=== PATIENT | male | born 1960 | race Hispanic/Latino ===

== ENCOUNTER 2018-09-20 12:59 | Inpatient (IN) | payer OTHER ==
[2018-09-20] MEDS ORDERED: NA CHLORIDE 0.9% 1,000 ML ONE (13:30)
[2018-09-20] MEDS ORDERED: FENTANYL CITR 100 MCG/2 ML ONE (13:42)
[2018-09-20] MEDS ORDERED: ONDANSETRON 4 MG/2 ML VIAL ONE ×2 (13:48→16:01)
[2018-09-20 13:56] LABS: Absolute Lymphocytes (CBC) 0.7 K/uL (0.7-4.9); Basophils % 0.5 % (0-1.3); Hematocrit 47.9 % (39.6-49.0); Lymphocytes % 5.9 % (15.3-44.8); MPV 9.7 fL (7.6-11.3); RBC Red Blood Cell Count 5.36 M/uL (4.33-5.43)
[2018-09-20 14:04] LABS: Protime INR 0.91
[2018-09-20 14:14] LABS: ALT/SGPT 38 U/L (12-78); AST/SGOT 15 U/L (15-37); Albumin 4.6 g/dL (3.4-5.0); Alkaline Phosphatase 63 U/L (45-117); BUN Blood Urea Nitrogen 22 mg/dL (7-18); Bicarbonate 28 mmol/L (21-32); Bilirubin Direct 0.2 mg/dL (0-0.2); Bilirubin Total 0.6 mg/dL (0.2-1.0); Glucose Level 397 mg/dL (74-106); Magnesium 1.9 mg/dL (1.8-2.4); NT PRO-BNP 53 pg/mL (<125); Potassium 4.7 mmol/L (3.5-5.1); Protein, Total 8.9 g/dL (6.4-8.2); Sodium Level 135 mmol/L (136-145); Troponin (Emerg Dept Use Only) < 0.02 ng/mL (0.0-0.045)
--- NOTE | 2018-09-20 15:24 | RAD REPORT ---
EXAM DESCRIPTION: CT - Stone Protocol - 09/20/2018 3:10 pm CLINICAL HISTORY: Abdominal pain, flank pain COMPARISON: None. TECHNIQUE: Axial 5 mm thick images were obtained without oral or IV contrast. The [id number]-co-odtq span s the entirety of the system including uppermost abdomen and lung bases. All CT scans are performed using dose optimization technique as appropriate and may include automated exposure control or mA/KV adjustment according to patient size. FINDINGS: Zzvi-ap-finstymy right-sided hydronephrosis is present down to the UVJ level where there i s a 5 millimeter stone. No left-sided hydronephrosis. Patient has multiple 2-10 mm nonobstructing casi yx calculi. There is significant stranding and fluid in the perinephric fat indicating significant ob struction and possible ruptured calyx. No suspicious renal masses. Isodense masses and pyelonephritis are not excluded on a stone protocol CT scan. No urinary bladder suspicious finding. No significant adrenal finding. Diffuse fatty infiltration is present in the liver. Granulomatous type calcifications are present. Sp anibal and pancreas show no acute findings. No gallbladder or biliary tree abnormality identified. Small hiatal hernia is present. Moderate stool volume seen in the colon. No acute GI process seen. No hernia, mass or bulky lymphadenopathy noted. No free air, free fluid or inflammatory stranding. No significant bony abnormality. IMPRESSION: Mild to moderate right-sided hydronephrosis secondary to obstructing 5 mm stone at the r ight UVJ. Significant stranding is present in the perinephric fat on the right and there is some fluid present. This could indicate a leaking or ruptured calyx from obstruction. Numerous 2-10 mm nonobstructing calyx calculi of each kidney. Isodense masses and pyelonephritis are not excluded on stone protocol technique. Diffuse fatty infiltration of the liver.
--- NOTE | 2018-09-20 15:35 | RAD REPORT ---
EXAM DESCRIPTION: RAD - Chest Single View - 09/20/2018 1:39 pm CLINICAL HISTORY: Abdominal pain, right flank pain COMPARISON: None. TECHNIQUE: AP portable chest image was obtained 1332 hours . FINDINGS: No focal mass or consolidation. Interstitial markings are mildly prominent suspected to be baseline. Heart and vasculature are normal. No measurable pleural effusion and no pneumothorax. No a cute bony abnormality seen. No acute aortic findings suspected. IMPRESSION: No acute cardiopulmonary process.
[2018-09-20] MEDS ORDERED: MAGNESIUM OXIDE 400 MG TAB ONE (15:50)
[2018-09-20] MEDS ORDERED: CEFTRIAXONE/SWI 1gm 1 GM/10 ML SYR ONE (15:50)
[2018-09-20] MEDS ORDERED: TAMSULOSIN 0.4 MG SR CAP ONE (15:50)
[2018-09-20 16:23] LABS: Urine Bacteria <20 /HPF (NONE SEEN); Urine Culture Reflex Order NOT NEEDED
[2018-09-20] MEDS ORDERED: ACETAMINOPHEN 500 MG TAB ONE (16:39)
[2018-09-20] MEDS ORDERED: HYDROMORPHONE HCL 0.5 MG/0.5 ML INJ ONE (16:48)
[2018-09-20] MEDS ORDERED: PROMETHAZINE 25 MG/ML VIAL ONE (16:54)
--- NOTE | 2018-09-20 16:54 | ER ---
Nurse's Notes [facility] Name: Bharath Rhodes Jr Age: 57 yrs Sex: Male : 1960 Arrival Date: 09/20/2018 Time: 13:02 Bed 18 Private MD: Diagnosis: Essential (primary) hypertension;Hydronephrosis with renal and ureteral calculous obstruction;Ruptured Calyx Presentation: 09/20 13:03 Presenting complaint: Patient states: when i woke today, i started having abdominal hj pain, R flank pain and been vomiting ever since, now im dizzy; denies fever and chills;. Transition of care: patient was not received from another setting of care. Onset of symptoms was September 20, 2018. Risk Assessment: Do you want to hurt yourself or someone else? Patient reports no desire to harm self or others. Initial Sepsis Screen: Does the patient meet any 2 criteria? No. Patient's initial sepsis screen is negative. Does the patient have a suspected source of infection? No. Patient's initial sepsis screen is negative. Care prior to arrival: None. 13:03 Method Of Arrival: Ambulatory 13:03 Acuity: LAVON 3 hj Historical: - Allergies: 13:05 No Known Allergies; hj - PMHx: 13:05 Diabetes - NIDDM; Hypertension; hj - PSHx: 13:05 None; hj Screenin:20 Abuse screen: Denies threats or abuse. Nutritional screening: No deficits noted. em Tuberculosis screening: No symptoms or risk factors identified. Fall Risk None identified. Assessment: 13:20 General: Appears in no apparent distress. uncomfortable, Behavior is calm, cooperative, em Denies fever. Pain: Complains of pain in right mid back Pain radiates to anterior aspect of right lateral abdomen and posterior aspect of right lateral abdomen Pain currently is 8 out of 10 on a pain scale. Pain began this morning. Neuro: Level of Consciousness is awake, alert, obeys commands, Oriented to person, place, time, situation, Reports dizziness, weakness Denies headache. Cardiovascular: Denies chest pain, shortness of breath, Capillary refill < 3 seconds Patient's skin is warm and dry. Respiratory: Airway is patent Respiratory effort is even, unlabored, Respiratory pattern is regular, symmetrical. GI: Abdomen is flat, Bowel sounds present X 4 quads. Abd is soft and non tender X 4 quads. Reports nausea, vomiting. Derm: Skin is intact, is healthy with good turgor, Skin is pink, warm \T\ dry. Musculoskeletal: Capillary refill < 3 seconds, Range of motion: intact in all extremities. 14:07 Reassessment: Patient appears in no apparent distress at this time. Patient and/or em family updated on plan of care and expected duration. Pain level reassessed. Patient is alert, oriented x 3, equal unlabored respirations, skin warm/dry/pink. rates pain 6/10 Patient states feeling better. 15:00 Reassessment: reports pain is coming back, rates pain 7/10, provider notified, new em medication orders received. 15:02 Reassessment: wheeled to CT via stretcher. em 17:45 Reassessment: Patient appears in no apparent distress at this time. Patient and/or em family updated on plan of care and expected duration. Pain level reassessed. Patient is alert, oriented x 3, equal unlabored respirations, skin warm/dry/pink. appears comfortable, rates pain 7/10 Patient states feeling better. Vital Signs: 13:05 BP 203 / 101; Pulse 94; Resp 18; Temp 98.3(O); Pulse Ox 99% on R/A; Weight 86.18 kg; hj Height 5 ft. 9 in. (175.26 cm); Pain 6/10; 13:20 BP 200 / 107; Pulse 91; Resp 18; Pulse Ox 99% ; Pain 7/10; em 14:07 BP 175 / 103; Pulse 82; Resp 22; Pulse Ox 96% on R/A; Pain 6/10; em 14:30 BP 161 / 92; Pulse 81; Resp 20; Pulse Ox 99% on R/A; em 15:30 BP 196 / 94; Pulse 95; Resp 24; Pulse Ox 97% on R/A; Pain 7/10; em 16:34 BP 197 / 93; Pulse 88; Resp 18; Temp 99.5(O); Pulse Ox 99% on R/A; Pain 8/10; em 17:56 BP 175 / 100; Pulse 82; Resp 20; Temp 99.7(O); Pulse Ox 97% on R/A; Pain 7/10; em 13:05 Body Mass Index 28.06 (86.18 kg, 175.26 cm) ED Course: 13:02 Patient arrived in ED. hj 13:04 Triage completed. hj 13:05 Arm band placed on right wrist. hj 13:11 [facility]ain[facility] Pritchard [facility]-C [facility]. snw 13:11 John Ordonez MD is Attending Physician. snw 13:14 Jarred Ramirez LVN is Primary Nurse. em 13:20 Patient has correct armband on for positive identification. Placed in gown. Bed in low em position. Call light in reach. Side rails up X2. Adult w/ patient. school bus monitor on. Pulse ox on. NIBP on. 13:40 XRAY Chest (1 view) In Process Unspecified. EDMS 13:45 Radiology exam delayed due to lab results not completed at this time. (BUN/Creatinine). mw3 13:50 Initial lab(s) drawn, by me, sent to lab. Inserted saline lock: 20 gauge in right em antecubital area, using aseptic technique. Blood collected. 14:14 Radiology exam delayed due to lab results not completed at this time. (BUN/Creatinine). mw3 15:10 CT completed. Patient tolerated procedure well. Patient moved back from CT. bq 15:[address] In Process Unspecified. EDMS 16:51 Summer Shine MD is Hospitalizing Provider. snw 17:11 X-ray completed. Portable x-ray completed in exam room. Patient tolerated procedure mh1 well. 17:12 Abdomen 1 View (KUB) XRAY In Process Unspecified. EDMS 17:47 No provider procedures requiring assistance completed. Patient admitted, IV remains in em place. Administered Medications: 13:50 Drug: fentaNYL (PF) 50 mcg Route: IVP; Site: right antecubital; iw 14:22 Follow up: Response: No adverse reaction; Pain is decreased em 13:52 Drug: Zofran 4 mg Route: IVP; Site: right antecubital; iw 14:22 Follow up: Response: No adverse reaction; Nausea is decreased em 13:53 Drug: NS 0.9% 1000 ml Route: IV; Rate: 125 ml/hr; Site: right antecubital; em 18:07 Follow up: IV Status: Completed infusion em 14:48 Drug: NS 0.9% 500 ml Route: IV; Rate: bolus; Site: right antecubital; em 17:58 Follow up: IV Status: Completed infusion; IV Intake: 500ml em 15:01 Drug: fentaNYL (PF) 50 mcg Route: IVP; Site: right antecubital; em 16:45 Follow up: Response: No adverse reaction; Pain is decreased em 16:14 Drug: Flomax 0.4 mg Route: PO; em 16:46 Follow up: Response: No adverse reaction em 16:14 Drug: Magnesium 400 mg Route: PO; em 16:46 Follow up: Response: No adverse reaction em 16:14 Drug: NS 0.9% 500 ml Route: IV; Rate: bolus; Site: right antecubital; em 16:45 Follow up: IV Status: Completed infusion; IV Intake: 500ml em 16:15 Drug: Rocephin 1 grams Route: IV; Rate: calculated rate; Site: right antecubital; iw 17:03 Follow up: Response: No adverse reaction; IV Status: Completed infusion; IV Intake: 10mlem 16:45 Drug: Tylenol 1000 mg Route: PO; em 17:55 Follow up: Response: No adverse reaction em 17:03 Drug: Dilaudid 0.5 mg Route: IVP; Site: right antecubital; iw 17:55 Follow up: Response: No adverse reaction; Pain is decreased em 17:05 Drug: Phenergan 6.25 mg Route: IVP; Site: right antecubital; iw 17:55 Follow up: Response: No adverse reaction; Nausea is decreased em Point of Care Testing: Blood Glucose: 16:33 Blood Glucose: 346 mg/dL; em Ranges: Intake: 16:45 IV: 500ml; Total: 500ml. em 17:03 IV: 10ml; Total: 510ml. em 17:58 IV: 500ml; Total: 1010ml. em Outcome: 16:52 Decision to Hospitalize by Provider. snw 17:48 Admitted to Med/surg accompanied by tech, family with patient, via stretcher, room 207, em with chart, Report called to GABY Gil 17:48 Condition: stable 17:48 Instructed on the need for admit, Demonstrated understanding of instructions. 18:07 Patient left the ED. em Signatures: Dispatcher [facility] EDZainab Booker, VARIETY LATHE OPERATOR-C VARIETY LATHE OPERATOR-CsnAna Marcum1 Letty Mensah bq Jarred Ramirez, BIZTALK SOFTWARE DEVELOPER BIZTALK SOFTWARE DEVELOPER em Melva Aguilar RN RN iw Yuriy Salgado RN RN Lakesha Simon mw3 Corrections: (The following items were deleted from the chart) 13:07 13:05 Pulse 94bpm; Resp 18bpm; Pulse Ox 99% RA; Temp 98.3F Oral; 86.18 kg; Height 5 ft. hj 9 in.; BMI: 28.0; Pain 6/10; hj 16:45 16:34 BP 197 / 93; Pulse 88bpm; Resp 18bpm; Pulse Ox 99% RA; Pain 6/10; em em
--- NOTE | 2018-09-20 16:54 | EDPHYS ---
Physician Documentation [facility] Name: Bharath Rhodes Jr Age: 57 yrs Sex: Male : 1960 Arrival Date: 09/20/2018 Time: 13:02 Bed 18 Private MD: ED Physician John Ordonez HPI: 09/20 13:36 This 57 yrs old Male presents to ER via Ambulatory with complaints of Flank snw Pain, Vomiting, Dizziness. 13:36 The patient complains of pain in the right mid back and right low back. The pain does snw not radiate. Onset: The symptoms/episode began/occurred suddenly. Modifying factors: The symptoms are alleviated by nothing. Associated signs and symptoms: Pertinent positives: dizziness, vomiting. Severity of pain: At its worst the pain was severe in the emergency department the pain is unchanged. The patient has not experienced similar symptoms in the past. pt states he was well yesterday, began today with vomiting and then sudden onset of pain to right back between shoulder and hip, + dizziness when trying to stand to vomit. Historical: - Allergies: 13:05 No Known Allergies; hj - PMHx: 13:05 Diabetes - NIDDM; Hypertension; hj - PSHx: 13:05 None; hj ROS: 13:33 Eyes: Negative for injury, pain, redness, and discharge, ENT: Negative for injury, snw pain, and discharge, Neck: Negative for injury, pain, and swelling, Cardiovascular: Negative for chest pain, palpitations, and edema, Respiratory: Negative for shortness of breath, cough, wheezing, and pleuritic chest pain, Abdomen/GI: Negative for abdominal pain, diarrhea, and constipation, + nausea/vomiting : Negative for injury, bleeding, discharge, and swelling, MS/Extremity: Negative for injury and deformity, Skin: Negative for injury, rash, and discoloration. 13:33 Constitutional: Positive for poor PO intake. 13:33 Back: Positive for pain at rest, of the right mid back and right low back. 13:33 Neuro: Positive for dizziness. Exam: 13:33 Constitutional: This is a well developed, well nourished patient who is awake, alert, snw and in no acute distress. Head/Face: Normocephalic, atraumatic. Eyes: Pupils equal round and reactive to light, extra-ocular motions intact. Lids and lashes normal. Conjunctiva and sclera are non-icteric and not injected. Cornea within normal limits. Periorbital areas with no swelling, redness, or edema. ENT: Nares patent. No nasal discharge, no septal abnormalities noted. Tympanic membranes are normal and external auditory canals are clear. Oropharynx with no redness, swelling, or masses, exudates, or evidence of obstruction, uvula midline. Mucous membranes moist. Neck: Trachea midline, no thyromegaly or masses palpated, and no cervical lymphadenopathy. Supple, full range of motion without nuchal rigidity, or vertebral point tenderness. No Meningismus. Chest/axilla: Normal chest wall appearance and motion. Nontender with no deformity. No lesions are appreciated. Cardiovascular: Regular rate and rhythm with a normal S1 and S2. No gallops, murmurs, or rubs. Normal PMI, no JVD. No pulse deficits. Respiratory: Lungs have equal breath sounds bilaterally, clear to auscultation and percussion. No rales, rhonchi or wheezes noted. No increased work of breathing, no retractions or nasal flaring. Back: No spinal tenderness. No costovertebral tenderness. Full range of motion. 13:33 Skin: Warm, dry with normal turgor. Normal color with no rashes, no lesions, and no evidence of cellulitis. MS/ Extremity: Pulses equal, no cyanosis. Neurovascular intact. Full, normal range of motion. Neuro: Awake and alert, GCS 15, oriented to person, place, time, and situation. Cranial nerves II-XII grossly intact. Motor strength 5/5 in all extremities. Sensory grossly intact. Cerebellar exam normal. Normal gait. Psych: Awake, alert, with orientation to person, place and time. Behavior, mood, and affect are within normal limits. 13:33 Abdomen/GI: Inspection: abdomen appears normal, Bowel sounds: diminished, Palpation: moderate abdominal tenderness, in the posterior aspect of left lateral abdomen. 13:55 ECG was reviewed by the Attending Physician. [facility] Vital Signs: 13:05 BP 203 / 101; Pulse 94; Resp 18; Temp 98.3(O); Pulse Ox 99% on R/A; Weight 86.18 kg; hj Height 5 ft. 9 in. (175.26 cm); Pain 6/10; 13:20 BP 200 / 107; Pulse 91; Resp 18; Pulse Ox 99% ; Pain 7/10; em 14:07 BP 175 / 103; Pulse 82; Resp 22; Pulse Ox 96% on R/A; Pain 6/10; em 14:30 BP 161 / 92; Pulse 81; Resp 20; Pulse Ox 99% on R/A; em 15:30 BP 196 / 94; Pulse 95; Resp 24; Pulse Ox 97% on R/A; Pain 7/10; em 16:34 BP 197 / 93; Pulse 88; Resp 18; Temp 99.5(O); Pulse Ox 99% on R/A; Pain 8/10; em 17:56 BP 175 / 100; Pulse 82; Resp 20; Temp 99.7(O); Pulse Ox 97% on R/A; Pain 7/10; em 13:05 Body Mass Index 28.06 (86.18 kg, 175.26 cm) hj MDM: 13:16 Patient medically screened. snw 16:49 Data reviewed: vital signs, nurses notes. Data interpreted: Pulse oximetry: on room air snw is 99 %. Interpretation: normal. Counseling: I had a detailed discussion with the patient and/or guardian regarding: the historical points, exam findings, and any diagnostic results supporting the discharge/admit diagnosis, the presence of at least one elevated blood pressure reading (>120/80) during this emergency department visit, lab results, radiology results, the need for further work-up and treatment in the hospital. Physician consultation: Sherine Gaona MD was called at 16:49. 16:49 Physician consultation: was contacted at 16:50, regarding consult, would like admission snw per Dr. Summer Shine MD would like further tests performed, KUB. 16:50 ED course: Pt to remain NPO post MN. snw 16:51 Physician consultation: Summer Shine MD was called at 16:51, was contacted at 16:51, snw regarding admission, to the medical/surgical unit. 09/20 13:15 Order name: Urine Culture snw 09/20 13:15 Order name: Urine Microscopic Only snw 09/20 13:15 Order name: Basic Metabolic Panel snw 09/20 13:15 Order name: CBC with Diff snw 09/20 13:15 Order name: LFT's snw 09/20 13:15 Order name: Magnesium [facility] 09/20 13:15 Order name: NT PRO-BNP [facility] 09/20 13:15 Order name: PT-INR; Complete Time: 14:20 snw 09/20 13:15 Order name: Troponin (emerg Dept Use Only); Complete Time: 14:20 snw 09/20 13:16 Order name: Urine Culture EDNJ 09/20 13:16 Order name: Urine Microscopic Only; Complete Time: 16:28 EDNJ 09/20 13:16 Order name: Basic Metabolic Panel; Complete Time: 14:20 EDMS 09/20 13:16 Order name: CBC with Automated Diff; Complete Time: 18:34 EDNJ 09/20 13:16 Order name: Liver (Hepatic) Function; Complete Time: 14:20 EDNJ 09/20 13:15 Order name: XRAY Chest (1 view); Complete Time: 15:44 snw 09/20 13:16 Order name: Magnesium; Complete Time: 14:20 EDNJ 09/20 13:16 Order name: NT PRO-BNP; Complete Time: 14:20 [facility] 09/20 14:35 Order name: Stone Protocol CT; Complete Time: 15:44 snw 09/20 16:13 Order name: Urine Dipstick--Ancillary (enter results) 09/20 16:49 Order name: Abdomen 1 View (KUB) XRAY; Complete Time: 18:34 w 09/20 17:50 Order name: Manual Differential; Complete Time: 18:34 [facility] 09/20 13:15 Order name: EKG; Complete Time: 13:17 w 09/20 13:15 Order name: Cardiac monitoring; Complete Time: 14:11 w 09/20 13:15 Order name: EKG - Nurse/Tech; Complete Time: 14:11 w 09/20 13:15 Order name: IV Saline Lock; Complete Time: 14:11 w 09/20 13:15 Order name: Labs collected and sent; Complete Time: 14:11 w 09/20 13:15 Order name: O2 Per Protocol; Complete Time: 14:11 w 09/20 13:15 Order name: O2 Sat Monitoring; Complete Time: 14:11 w 09/20 16:52 Order name: CONS Physician Consult [facility] 09/20 16:52 Order name: NPO EDMS Administered Medications: 13:50 Drug: fentaNYL (PF) 50 mcg Route: IVP; Site: right antecubital; iw 14:22 Follow up: Response: No adverse reaction; Pain is decreased em 13:52 Drug: Zofran 4 mg Route: IVP; Site: right antecubital; iw 14:22 Follow up: Response: No adverse reaction; Nausea is decreased em 13:53 Drug: NS 0.9% 1000 ml Route: IV; Rate: 125 ml/hr; Site: right antecubital; em 18:07 Follow up: IV Status: Completed infusion em 14:48 Drug: NS 0.9% 500 ml Route: IV; Rate: bolus; Site: right antecubital; em 17:58 Follow up: IV Status: Completed infusion; IV Intake: 500ml em 15:01 Drug: fentaNYL (PF) 50 mcg Route: IVP; Site: right antecubital; em 16:45 Follow up: Response: No adverse reaction; Pain is decreased em 16:14 Drug: Flomax 0.4 mg Route: PO; em 16:46 Follow up: Response: No adverse reaction em 16:14 Drug: Magnesium 400 mg Route: PO; em 16:46 Follow up: Response: No adverse reaction em 16:14 Drug: NS 0.9% 500 ml Route: IV; Rate: bolus; Site: right antecubital; em 16:45 Follow up: IV Status: Completed infusion; IV Intake: 500ml em 16:15 Drug: Rocephin 1 grams Route: IV; Rate: calculated rate; Site: right antecubital; iw 17:03 Follow up: Response: No adverse reaction; IV Status: Completed infusion; IV Intake: 10mlem 16:45 Drug: Tylenol 1000 mg Route: PO; em 17:55 Follow up: Response: No adverse reaction em 17:03 Drug: Dilaudid 0.5 mg Route: IVP; Site: right antecubital; iw 17:55 Follow up: Response: No adverse reaction; Pain is decreased em 17:05 Drug: Phenergan 6.25 mg Route: IVP; Site: right antecubital; iw 17:55 Follow up: Response: No adverse reaction; Nausea is decreased em Point of Care Testing: Blood Glucose: 16:33 Blood Glucose: 346 mg/dL; em Ranges: Critical Glucose Levels:Adult <50 mg/dl or >400 mg/dl <40 mg/dl or >180 mg/dl Disposition: 18:33 Co-signature as Attending Physician, John Ordonez MD. rn Disposition: 09/20/18 16:52 Hospitalization ordered by Summer Shine for Inpatient Admission. Preliminary diagnosis are Essential (primary) hypertension, Hydronephrosis with renal and ureteral calculous obstruction, Ruptured Calyx. - Bed requested for Telemetry/MedSurg (Inpatient). - Status is Inpatient Admission. em - Condition is Stable. - Problem is new. - Symptoms are unchanged. UTI on Admission? No Signatures: Dispatcher [employer] EDMS Maral Ellis RN RN dw Zainab Pritchard, TELEX OPERATOR-C TELEX OPERATOR-Csnw Jarred Ramirez, PREDATORY HUNTER PREDATORY HUNTER em Melva Aguilar RN RN iw Nieto, Roman, MD MD rn Joaquin, Henry, RN RN Corrections: (The following items were deleted from the chart) 13:55 13:33 Dissection W/ Wo Con+CT.RAD.BRZ ordered. EDNJ EDMS 15:11 13:54 Angio Aorta For Dissection ordered. EDNJ EDMS 16:14 15:47 Bladder Scanner ordered. w em 17:34 16:52 Hospitalization Ordered by Summer Shine MD for Inpatient Admission. Preliminary dw diagnosis is Essential (primary) hypertension; Hydronephrosis with renal and ureteral calculous obstruction; Ruptured Calyx. Bed requested for Telemetry/MedSurg (Inpatient). Status is Inpatient Admission. Condition is Stable. Problem is new. Symptoms are unchanged. UTI on Admission? No. snw 18:07 17:34 09/20/2018 16:52 Hospitalization Ordered by Summer Shine MD for Inpatient em Admission. Preliminary diagnosis is Essential (primary) hypertension; Hydronephrosis with renal and ureteral calculous obstruction; Ruptured Calyx. Bed requested for Telemetry/MedSurg (Inpatient). Status is Inpatient Admission. Condition is Stable. Problem is new. Symptoms are unchanged. UTI on Admission? No. dw
--- NOTE | 2018-09-20 16:56 | P.HP ---
Certification for Inpatient Patient admitted to: Observation With expected LOS: <2 Midnights Patient will require the following post-hospital care: None Practitioner: I am a practitioner with admitting privileges, knowledge of patient current condition, hospital course, and medical plan of care. Services: Services provided to patient in accordance with Admission requirements found in Title 42 Section 412.3 of the Code of Federal Regulations Patient History Date of Service: 09/20/18 Primary Care Provider: Dr Potts Reason for admission: Nephroliathsis History of Present Illness: 57 y/o M with Pmhx of DM and HTN who presented to the ED with Abdominal Pain that started on Right flank area and has gotten progressively worse. pt also have been having N/V and Dizziness since this AM. Pt states he has had similar episode in the past and was diagnosed with Kidney Stone. He however never saw any doctor for it. Today it started again and thus pt came to the ER. Denies having fever, chills, CP or SOB In the ER was found to have Right sided UPJ stone with Hydronephrosis and multiple other stones and thus was admitted for further care. Home medications list reviewed: Yes - Past Medical/Surgical History Has patient received pneumonia vaccine in the past: No Diabetic: No -: HTN -: Diabetes -: None - Family History Family History: Reviewed- Non-Contributory - Social History Smoking Status: Former smoker Counseled patient to stop smoking for: more than 10 minutes Smoking therapy provided: Yes Patient receptive to therapy: No Alcohol use: No CD- Drugs: No Caffeine use: No Place of Residence: Home Review of Systems 10-point ROS is otherwise unremarkable Physical Examination - Physical Exam General: Alert, In no apparent distress HEENT: Atraumatic, PERRLA, Mucous membr. moist/pink, EOMI, Sclerae nonicteric Neck: Supple, 2+ carotid pulse no bruit, No LAD, Without JVD or thyroid abnormality Respiratory: Clear to auscultation bilaterally, Normal air movement Cardiovascular: Regular rate/rhythm, Normal S1 S2 Gastrointestinal: Normal bowel sounds, Tenderness (Right Sided CVA tenderness) Musculoskeletal: No tenderness Integumentary: No rashes Neurological: Normal speech, Normal strength at 5/5 x4 extr, Normal tone Lymphatics: No axilla or inguinal lymphadenopathy - Studies Laboratory Data (last 24 hrs) 09/20/18 13:46: PT 10.8, INR 0.91 09/20/18 13:46: WBC 11.8 H, Hgb 16.4, Hct 47.9, Plt Count 198 09/20/18 13:46: Sodium 135 L, Potassium 4.7, BUN 22 H, Creatinine 1.67 H, Glucose 397 H, Magnesium 1.9, Total Bilirubin 0.6, AST 15, ALT 38, Alkaline Phosphatase 63 Assessment and Plan - Problems (Diagnosis) (1) Nephrolithiasis Current Visit: Yes Status: Acute Plan: right-sided hydronephrosis secondary to obstructing 5 mm stone at the right UVJ with Multiple other stones small in size -urology consulted. Apprecaited reccs -NPO after midnight -IV fluids and IV abx for now -Butt catheter for Hydronephrosis -Urine culture as well -Pain and Nausea control (2) Diabetes Current Visit: Yes Status: Chronic Plan: Insulin Sliding scale and Accuchecks ACHS Qualifiers: Diabetes mellitus type: type 2 Diabetes mellitus [facility] insulin use: without [facility] use Diabetes mellitus complication status: without complication Qualified Code(s): E11.9 - Type 2 diabetes mellitus without complications (3) HTN (hypertension) Current Visit: Yes Status: Chronic Plan: HTN -Stable will continue to monitor Qualifiers: Hypertension type: essential hypertension Qualified Code(s): I10 - Essential (primary) hypertension - Plan Admit to the hospital for Right Sided Hydronephrosis Discharge Plan: Home Plan to discharge in: Greater than 2 days - Advance Directives Does patient have a Living Will: No Does patient have a Durable POA for Healthcare: No - Code Status/Comfort Care Code Status Assessed: Yes Critical Care: No
[2018-09-20] MEDS ORDERED: ONDANSETRON 4 MG/2 ML VIAL IV PRN (16:59)
--- NOTE | 2018-09-20 17:48 | RAD REPORT ---
EXAM DESCRIPTION: RAD - Abdomen 1 View (KUB) - 09/20/2018 5:12 pm CLINICAL HISTORY: Obstructing right UVJ calculus COMPARISON: CT study same date FINDINGS: An oval-shaped calcification in the right pelvis is present corresponding in size and loca tion to the obstructing calculus on CT study. This is along the lateral margin of the coccyx segments . Nonobstructing calculi of the kidneys are partially imaged. Bowel gas pattern is nonspecific. No bowel obstruction. No significant bony findings IMPRESSION: Obstructing right UVJ calculus is identifiable on plain film position just lateral to th e coccyx segments.
[2018-09-20 17:50] LABS: Blood Morphology Comment NOT SEEN (NOT SEEN); Platelet Estimate ADEQ
[2018-09-20] MEDS ORDERED: CEFTRIAXONE/SWI 1gm 1 GM/10 ML SYR IVP SCH (18:00)
[2018-09-20] MEDS: NA CHLORIDE 0.9% 1,000 ML IV SCH (18:31)
[2018-09-20 19:36] LABS: Urine Blood 1+ (NEG); Urine Glucose 2+ (NEG); Urine Protein 2+ (NEG); Urine Specific Gravity 1.015 (1.005-1.030)
[2018-09-20] MEDS: MORPHINE 2 MG/ML SYR IV PRN (22:04)
[2018-09-21] MEDS ORDERED: INSULIN 70/30 100 UNITS/ML SQ ONE (01:58)
[2018-09-21] MEDS ORDERED: D50W 25 GM/50 ML SYRINGE IV PRN ×2 (01:59→17:12)
[2018-09-21] MEDS ORDERED: GLUCAGON 1 MG/VIAL IM PRN ×2 (01:59→17:12)
[2018-09-21] MEDS: NA CHLORIDE 0.9% 1,000 ML IV SCH ×4 (02:43→23:00)
[2018-09-21 06:04] LABS: Absolute Lymphocytes (CBC) 1.8 K/uL (0.7-4.9); Basophils % 0.5 % (0-1.3); Hematocrit 42.4 % (39.6-49.0); Lymphocytes % 18.6 % (15.3-44.8); RBC Red Blood Cell Count 4.74 M/uL (4.33-5.43)
[2018-09-21 06:14] LABS: Albumin 3.6 g/dL (3.4-5.0); Bilirubin Total 0.8 mg/dL (0.2-1.0); Potassium 3.9 mmol/L (3.5-5.1); Protein, Total 7.5 g/dL (6.4-8.2)
[2018-09-21 07:15] LABS: Urine Appearance CLEAR; Urine Bilirubin NEGATIVE (NEG); Urine Blood NEGATIVE (NEG); Urine Color YELLOW; Urine Glucose 3+ (NEG); Urine Protein 1+ (NEG); Urine Specific Gravity >=1.030 (1.005-1.030); Urine Urobilinogen 0.2 mg/dL (0.2-1.0); Urine pH 5.5 (5.0-7.0)
[2018-09-21 07:41] LABS: Urine Microscopic Reflex ORDER UMIC
--- NOTE | 2018-09-21 07:45 | EKG ---
Test Date: 2018-09-20 Test Time: 13:53:23 Residential Finish Carpenter: FREDRICK MEASUREMENT RESULTS: Intervals: Rate: 82 UT: 134 QRSD: 92 QT: 376 QTc: 439 [place]: P: 53 UT: 134 QRS: -70 T: 43 INTERPRETIVE STATEMENTS: Normal sinus rhythm Possible Left atrial enlargement Pulmonary disease pattern Incomplete right bundle branch block Left axis possible septal infarct, age undetermined Abnormal ECG No previous ECG available for comparison Electronically Signed On 09-21-18 07:43:24 CDT by Nate Cavanaugh
[2018-09-21 07:56] LABS: Urine Bacteria <20 /HPF (NONE SEEN); Urine Culture Reflex Order NOT NEEDED
[2018-09-21 07:59] LABS: Urine Mucus 1+ /HPF (NONE SEEN)
[2018-09-21] MEDS: LOSARTAN POTASSIUM 50 MG TABLET PO SCH (08:21)
[2018-09-21] MEDS: CEFTRIAXONE/SWI 1gm 1 GM/10 ML SYR IVP SCH (08:23)
[2018-09-21] MEDS ORDERED: METFORMIN HCL 750 MG PO SCH (09:00)
--- NOTE | 2018-09-21 09:43 | CON ---
History Of Present Illness: This is a 57-year-old gentleman that came in for right flank pain. CT scan revealed a 5-mm stone at right UVJ with possible calyceal rupture. Has lots of perinephric fluid around the kidney. CT scan also showed ceuo-[id number] hydronephrosis down to the right UVJ with 5-mm stone present. Patient also has multiple 2 to 10 mm nonobstructive calyceal stone. The patient had previous stone episode years ago, was seen in the emergency room, but never followed up here for further action. Now, I believe he needs a ureteroscopy, stone extraction, and stent placement, at least leave the stent for good 14 days for the caliceal to heal. The patient's provider is Dr. Potts. Past Medical History: None. Family History: Noncontributory. Social History: Former smoker. No drug use. No alcohol use. No caffeine use. Resides at home. Review of Systems: Ten-point review of systems otherwise unremarkable as mentioned above. Physical Examination: Vital Signs: He is afebrile, stable. General: He is alert, no acute distress. HEENT: Atraumatic, normocephalic. Neck: Supple. No JVD. Respiratory: Clear. Cardiovascular: S1, S2. Gastrointestinal: Normal bowel sounds. Right-sided CVA tenderness. Musculoskeletal: Nontender. Skin: No rashes. Neurologic: Grossly intact. Lymphatics: No lymphadenopathy. Laboratory Studies: Within normal limits. Coags normal. CBC normal with an H and H of 16 and 48, platelets 198. Chemistry: Sodium 135, slightly low. Potassium 4.7, BUN 22, creatinine 1.7. Glucose elevated to 397, magnesium 1.9. Lfts normal. Assessment: A 5 mm right uvj stone. Remain n.p.o. overnight. He is to go for cystoscopy, right ureteroscopy, stone extraction, and stent placement. All general information, alternatives and risks reviewed with patient and wishes to proceed. KYLE/KEITH Voice ID: [id number] Report ID: [id number]
--- NOTE | 2018-09-21 10:40 | P.PN ---
Subjective Date of Service: 09/21/18 Primary Care Provider: Dr Potts Chief Complaint: Nephroliathsis Patient seen and examined at bedside with RN. Chart reviewed. Case discussed with urology. Patient is currently scheduled for a stent placement with urology today. This morning has no complaints to offer however states that he is very hungry. Review of Systems 10-point ROS is otherwise unremarkable Physical Examination - Vital Signs Temperature: 97.9 F Blood Pressure: 125/66 Pulse: 91 Respirations: 18 Pulse Ox (%): 94 - Physical Exam General: Alert, In no apparent distress HEENT: Atraumatic, PERRLA, EOMI Neck: Supple, JVD not distended Respiratory: Clear to auscultation bilaterally, Normal air movement Cardiovascular: Regular rate/rhythm, Normal S1 S2 Gastrointestinal: Normal bowel sounds, No tenderness Musculoskeletal: No tenderness Integumentary: No rashes Neurological: Normal speech, Normal tone, Normal affect Lymphatics: No axilla or inguinal lymphadenopathy - Studies Laboratory Data (last 24 hrs) 09/20/18 13:46: PT 10.8, INR 0.91 09/20/18 13:46: WBC 11.8 H, Hgb 16.4, Hct 47.9, Plt Count 198 09/20/18 13:46: Sodium 135 L, Potassium 4.7, BUN 22 H, Creatinine 1.67 H, Glucose 397 H, Magnesium 1.9, Total Bilirubin 0.6, AST 15, ALT 38, Alkaline Phosphatase 63 Medications List Reviewed: Yes Assessment And Plan - Current Problems (Diagnosis) (1) Nephrolithiasis Current Visit: Yes Status: Acute Plan: right-sided hydronephrosis secondary to obstructing 5 mm stone at the right UVJ with Multiple other stones small in size -urology consulted. Apprecaited reccs -NPO after midnight for procedure today -IV fluids and IV Rocephin at this time -urine cultures pending at this time (2) Acute kidney injury Current Visit: Yes Status: Acute Plan: Acute kidney injury most likely secondary to obstructing stone -BUN and creatinine elevated today -will follow up with patient post procedure -IV fluids to continue for next 24-48 hr (3) Diabetes Current Visit: Yes Status: Chronic Plan: Insulin Sliding scale and Accuchecks ACHS Qualifiers: Diabetes mellitus type: type 2 Diabetes mellitus [facility] insulin use: without [facility] use Diabetes mellitus complication status: without complication Qualified Code(s): E11.9 - Type 2 diabetes mellitus without complications (4) HTN (hypertension) Current Visit: Yes Status: Chronic Plan: HTN -Stable will continue to monitor Qualifiers: Hypertension type: essential hypertension Qualified Code(s): I10 - Essential (primary) hypertension - Plan Pending clinical improvement today. Has been awaiting procedure with urology today. Discharge Plan: Home Plan to discharge in: Greater than 2 days - Code Status/Comfort Care Code Status Assessed: Yes Critical Care: No
[2018-09-21] MEDS: MORPHINE 2 MG/ML SYR IV PRN (11:33)
[2018-09-21] MEDS ORDERED: PROPOFOL 200 MG/20 ML VIAL IV ONE (12:27)
[2018-09-21] MEDS ORDERED: FENTANYL CITR 100 MCG/2 ML ONE (12:28)
[2018-09-21] MEDS ORDERED: ONDANSETRON 4 MG/2 ML VIAL ONE ×2 (12:29→13:37)
[2018-09-21] MEDS ORDERED: LIDOCAINE 1% MPF 5 ML VIAL ONE (12:29)
[2018-09-21] MEDS ORDERED: MIDAZOLAM HCL 2 MG/2 ML INJ ONE (12:29)
[2018-09-21] MEDS ORDERED: EPHEDRINE SULF 50 MG/ML VIAL ONE (13:24)
[2018-09-21] MEDS ORDERED: Phenylephrine HCl 10 MG/ML 1 ML VIAL ONE (13:29)
[2018-09-21] MEDS ORDERED: Mastisol Adhesive Liq ONE (13:31)
[2018-09-21] MEDS ORDERED: NA CHLORIDE 0.9% 1,000 ML ONE (14:03)
--- NOTE | 2018-09-21 14:14 | RAD REPORT ---
EXAM DESCRIPTION: RAD - Cystography - 09/21/2018 1:40 pm FINDINGS: There were 19 KUB images obtained during a fluoroscopic assisted placement of a right uret eral stent. Fluoro time was 17 seconds. No suspicious or unexpected finding.
[2018-09-21] MEDS: INSULIN -REGULAR HUMAN 50 UNIT/0.5 ML ML SQ SCH ×2 (17:37→21:22)
[2018-09-21] MEDS: METFORMIN ER 500 MG TAB PO SCH (17:46)
[2018-09-21] MEDS ORDERED: ATORVASTATIN 20 MG TAB PO SCH (21:00)
[2018-09-22] MEDS: NA CHLORIDE 0.9% 1,000 ML IV SCH ×2 (01:41→08:11)
[2018-09-22 05:44] LABS: Absolute Lymphocytes (CBC) 2.2 K/uL (0.7-4.9); Basophils % 1.1 % (0-1.3); Hematocrit 40.6 % (39.6-49.0); Lymphocytes % 24.8 % (15.3-44.8); MPV 9.3 fL (7.6-11.3); RBC Red Blood Cell Count 4.49 M/uL (4.33-5.43)
[2018-09-22 06:09] LABS: Potassium 3.8 mmol/L (3.5-5.1)
[2018-09-22] MEDS: CEFTRIAXONE/SWI 1gm 1 GM/10 ML SYR IVP SCH (08:09)
[2018-09-22] MEDS: METFORMIN ER 500 MG TAB PO SCH (08:09)
[2018-09-22] MEDS: LOSARTAN POTASSIUM 50 MG TABLET PO SCH (08:09)
[2018-09-22] MEDS: INSULIN -REGULAR HUMAN 50 UNIT/0.5 ML ML SQ SCH (08:10)
--- NOTE | 2018-09-22 11:21 | P.SSS ---
Patient History Date of Service: 09/22/18 Primary Care Provider: Dr Potts Reason for admission: Nephroliathsis History of Present Illness: 57 y/o M with Pmhx of DM and HTN who presented to the ED with Abdominal Pain that started on Right flank area and has gotten progressively worse. pt also have been having N/V and Dizziness since this AM. Pt states he has had similar episode in the past and was diagnosed with Kidney Stone. He however never saw any doctor for it. Today it started again and thus pt came to the ER. Denies having fever, chills, CP or SOB In the ER was found to have Right sided UPJ stone with Hydronephrosis and multiple other stones and thus was admitted for further care. Allergies No Known Allergies Allergy (Unverified 09/20/18 18:24) Home Medications: Atorvastatin Calcium [Lipitor] 20 mg PO BEDTIME 09/20/18 Losartan Potassium [Cozaar] 100 mg PO DAILY 09/20/18 Metformin HCl [Glucophage XR OR ER] 750 mg PO BID 09/20/18 - Past Medical/Surgical History Has patient received pneumonia vaccine in the past: No Diabetic: No -: HTN -: Diabetes -: None - Family History Family History: Reviewed- Non-Contributory - Social History Smoking Status: Never smoker Alcohol use: Yes CD- Drugs: No Caffeine use: Yes Place of Residence: Home Review of Systems 10-point ROS is otherwise unremarkable Physical Examination - Vital Signs Temperature: 99 F Blood Pressure: 178/96 Pulse: 99 Respirations: 18 Pulse Ox (%): 95 - Physical Exam General: Alert, In no apparent distress HEENT: Atraumatic, PERRLA, Mucous membr. moist/pink, EOMI, Sclerae nonicteric Neck: Supple, 2+ carotid pulse no bruit, No LAD, Without JVD or thyroid abnormality Respiratory: Clear to auscultation bilaterally, Normal air movement Cardiovascular: Regular rate/rhythm, Normal S1 S2 Gastrointestinal: Normal bowel sounds, No tenderness Musculoskeletal: No tenderness Integumentary: No rashes Neurological: Normal gait, Normal speech, Normal strength at 5/5 x4 extr, Normal tone, Normal affect Lymphatics: No axilla or inguinal lymphadenopathy - Diagnosis (Problem(s)) (1) Nephrolithiasis Current Visit: Yes Status: Acute (2) Acute kidney injury Current Visit: Yes Status: Acute (3) Diabetes Current Visit: Yes Status: Chronic Qualifiers: Diabetes mellitus type: type 2 Diabetes mellitus snf insulin use: without snf use Diabetes mellitus complication status: without complication Qualified Code(s): E11.9 - Type 2 diabetes mellitus without complications (4) HTN (hypertension) Current Visit: Yes Status: Chronic Qualifiers: Hypertension type: essential hypertension Qualified Code(s): I10 - Essential (primary) hypertension Treatment Summary: Overall the hospice status remained stable Patient was initially admitted to the hospital for nephrolithiasis was found to have 5 mm right UPJ area. Urology was consulted who recommended patient get a stent placement here in the hospital along with cystoscopy. Patient had a cystoscopy done here in the hospital with stent placement had marked improvement in his symptoms and thus was discharged home under stable condition. While here in the hospital patient also was found to have a KI most likely secondary to obstructive nephropathy after the cystoscopy and stent placement. Patient's BUN and creatinine did improve and thus patient was discharged home under stable condition was asked increase his water supplementation and limit sodas along with other high sugar coverage patient demonstrate understanding and thus was discharged home under stable condition - Disposition Disposition: ROUTINE DISCHARGE Condition: GOOD Diet: Regular Activity: Ad juan jose
== END 2018-09-22 12:14 | disposition home or self-care (01) | DRG 661 ==
LOC: ER 12:59 → ERHOLD 16:51 → 2ND 17:56 → OBSVTOIN 09-21 18:57
PROVIDERS: ADMIT Family Medicine; ATTEND Family Medicine
PROC: 0T768DZ Dilation of Right Ureter with Intraluminal Device, Via Natural or Artificial Opening Endoscopic (ICD-10-PCS; 2018-09-21)
PROC: BT1D1ZZ Fluoroscopy of Right Kidney, Ureter and Bladder using Low Osmolar Contrast (ICD-10-PCS; 2018-09-21)
PROC: 0TC68ZZ Extirpation of Matter from Right Ureter, Via Natural or Artificial Opening Endoscopic (ICD-10-PCS; principal; 2018-09-21 12:30)
DX: N13.2 Hydronephrosis with renal and ureteral calculous obstruction (principal); N17.9 Acute kidney failure, unspecified; E11.9 Type 2 diabetes mellitus without complications; I10 Essential (primary) hypertension; Z87.891 Personal history of nicotine dependence
CPT/HCPCS: 36415; 51600; 71045; 74018; 74176; 74430; 76377; 80048; 80053; 80076; 81003; 81015; 82360; 82962; 83735; 83880; 84484; 85025; 85610; 87086; 87088; 88300; 93005; 96361; 96365; 96375; 99285; G0378; J0696; J1170; J2250; J2270; J2370; J2405; J2550; J2704; J3010; J7030

== ENCOUNTER 2021-08-16 08:57 | Emergency (ER) | payer OTHER ==
[2021-08-16 09:38] LABS: Protime INR 0.98
[2021-08-16 09:49] LABS: Absolute Lymphocytes (CBC) 1.3 K/uL (0.7-4.9); Hematocrit 44.1 % (39.6-49.0); MPV 9.4 fL (7.6-11.3); RBC Red Blood Cell Count 4.96 M/uL (4.33-5.43)
--- NOTE | 2021-08-16 09:49 | RAD REPORT ---
EXAM DESCRIPTION: CT - Head Brain Wo Cont - 08/16/2021 9:33 am CLINICAL HISTORY: Dizziness, non-specific COMPARISON: <Comparisons> TECHNIQUE: All CT scans are performed using dose optimization technique as appropriate and may inclu de automated exposure control or mA/KV adjustment according to patient size. FINDINGS: No intracranial hemorrhage, hydrocephalus or extra-axial fluid collection.No areas of brai n edema or evidence of midline shift. The paranasal sinuses and mastoids are clear. The calvarium is intact. IMPRESSION: No acute intracranial abnormality.
--- NOTE | 2021-08-16 09:50 | RAD REPORT ---
EXAM DESCRIPTION: RAD - Chest Single View - 08/16/2021 9:37 am CLINICAL HISTORY: dizziness COMPARISON: No comparisonsAbdomen 1 View (KUB) dated 02/02/2019; Chest Pa And Lat (2 Views) dated ; Abdomen 1 View (KUB) dated 01/05/2019; Abdomen 1 View (KUB) dated 09/20/2018 FINDINGS: Lines: None. Lungs: No evidence of edema or pneumonia. Pleural: No significant pleural effusions or pneumothorax. Cardiac: The heart size is within normal limits. Bones: No acute fractures. Other: IMPRESSION: No acute cardiopulmonary disease.
[2021-08-16 09:57] LABS: Magnesium 2.2 mg/dL (1.8-2.4); Potassium 4.1 mmol/L (3.5-5.1); Troponin High Sensitivity 20.2 pg/mL (<58.9)
[2021-08-16] MEDS ORDERED: INSULIN -REGULAR HUMAN 50 UNIT/0.5 ML ML ONE (10:21)
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
[2021-08-16 12:16] VITALS: TEMP 98.8
[2021-08-16 12:19] VITALS: BP 142/87
[2021-08-16 12:23] VITALS: O2SAT 100
--- NOTE | 2021-08-17 09:52 | EKG ---
Test Date: 2021-08-16 Test Time: 09:26:27 Telephone Cleaner: FREDRICK MEASUREMENT RESULTS: Intervals: Rate: 114 HI: 132 QRSD: 92 QT: 330 QTc: 454 [place]: P: 42 HI: 132 QRS: 250 T: -4 INTERPRETIVE STATEMENTS: Sinus tachycardia Possible Left atrial enlargement Right superior axis deviation Incomplete right bundle branch block Abnormal QRS-T angle, consider primary T wave abnormality Abnormal ECG Compared to ECG 01/19/2019 10:09:04 Right superior axis now present Incomplete right bundle-branch block now present T-wave abnormality now present Sinus rhythm no longer present Sinus arrhythmia no longer present Left-axis deviation no longer present Electronically Signed On 08-17-21 09:48:51 CDT by David Heart
== END 2021-08-16 12:11 | disposition home or self-care (01) ==
LOC: ER 08:57
DX: E11.65 Type 2 diabetes mellitus with hyperglycemia (principal); E86.9 Volume depletion, unspecified; I10 Essential (primary) hypertension
CPT/HCPCS: 96361; 93005; 85025; 80048; 36415; 83735; 85610; 82947; 84484; 70450; 71045; 96374; 99284; J1815